=== PATIENT | female | born 1980 | race Caucasian/White ===

== ENCOUNTER 2022-09-09 12:49 | Inpatient (IN) | payer MEDICAID ==
[~2022-09-09] VITALS: Ht 167.6 cm; Wt 80.2 kg
[2022-09-09 15:40] LABS: BASOPHILS % (AUTO) 0.7 % (0-1); EOSINOPHILS % (AUTO) 0 % (0-6); HEMATOCRIT 35.4 % (35.0-45.0); HEMOGLOBIN 11.8 g/dl (12.0-16.0); LYMPHOCYTES # (AUTO) 0.7 X10'3 (1.1-4.8); LYMPHOCYTES % (AUTO) 12.7 % (21-51); MEAN CORPUSCULAR HEMOGLOBIN 30.2 PG (27.0-31.0); MEAN CORPUSCULAR HGB CONC 33.2 g/dL (33.0-36.5); MEAN CORPUSCULAR VOLUME 90.8 FL (78-98); MEAN PLATELET VOLUME 7.9 FL (7.4-10.4); MONOCYTES # (AUTO) 0.4 X10'3 (0-0.9); MONOCYTES % (AUTO) 7.1 % (2-12); NEUTROPHILS # (AUTO) 4.3 X10'3 (1.8-7.7); NEUTROPHILS % (AUTO) 79.5 % (42-75); PLATELET COUNT 126 X10'3 (140-440); RED CELL DISTRIBUTION WIDTH 16.3 % (11.5-14.5); WHITE BLOOD COUNT 5.4 X10'3 (4.5-11.0)
[2022-09-09 15:54] LABS: ALANINE AMINOTRANSFERASE 59 U/L (12-78); ALBUMIN 5.1 G/DL (3.4-5.0); ALKALINE PHOSPHATASE 125 IU/L (46-116); ANION GAP 18 (8-16); ASPARTATE AMINO TRANSFERASE 102 U/L (10-37); BILIRUBIN,TOTAL 1.1 MG/DL (0.1-1.0); BLOOD UREA NITROGEN 9 MG/DL (7-18); BUN/CREATININE RATIO 16.7 (10.0-20.0); CALCIUM 9.8 MG/DL (8.5-10.1); CHLORIDE 99 MMOL/L (99-107); CREATININE 0.54 MG/DL (0.40-0.90); GLUCOSE 110 MG/DL (70-104); POTASSIUM 3.5 MMOL/L (3.5-5.1); SODIUM 140 MMOL/L (135-145); TOTAL CARBON DIOXIDE 23.4 MMOL/L (24-32); eGFR > 90 ML/MIN
[2022-09-09 15:59] LABS: LIPASE 90 U/L (73-393)
[2022-09-09] MEDS ORDERED: ondansetron/PF 4mg/2ml inj IV ONE (18:25)
[2022-09-09] MEDS ORDERED: mag hydrox/Alum hydrox/simeth 30ml oral suspension PO ONE (18:25)
[2022-09-09] MEDS ORDERED: diazepam inj 5 MG/ML inj. IV ONE ×3 (18:25→21:55)
[2022-09-09] MEDS ORDERED: famotidine/PF 10 mg/ml inj IV ONE (18:25)
[2022-09-09] MEDS ORDERED: normal saline 1000ml 1,000 ML IV ONE (18:25)
[2022-09-09 18:49] LABS: ETHANOL < 0.010 GM/DL (0.0-0.010)
[2022-09-09 18:56] LABS: URINE HCG NEGATIVE (NEG)
[2022-09-09 18:57] LABS: CLARITY,URINE SLIGHTLY CLOUDY (Clear); GLUCOSE, URINE NEGATIVE (Neg); KETONES,URINE >=80 mg/dl (Neg); LEUKOCYTE ESTERASE ,URINE NEGATIVE (Neg); NITRITES, URINE POSITIVE (Neg); OCCULT BLOOD,URINE LARGE (Neg); PROTEIN,URINE >=300 mg/dl (Neg)
[2022-09-09 18:59] LABS: UA COLLECTION TYPE CLN CATCH MIDSTREAM
[2022-09-09 19:04] LABS: COLOR,URINE DARK YELLOW (Yellow); SQUAMOUS EPITHELIAL CELL,UR MANY /LPF (FEW)
[2022-09-09 19:05] LABS: WBC,URINE TNTC /HPF (0-4)
[2022-09-09 19:07] LABS: MUCUS STRANDS MANY /LPF (Neg)
[2022-09-09 19:08] LABS: RBC,URINE 20-50 /HPF (0-2); TRANSITIONAL EPI CELLS,URINE MANY /HPF; YEAST FEW /HPF (NEGATIVE)
[2022-09-09 19:09] LABS: BACTERIA,URINE 3+ /HPF (Neg)
[2022-09-09] MEDS ORDERED: CefTRIAXone/D5W-Rocephin 1gm 50 ML IV ONE (19:10)
[2022-09-09 19:16] LABS: URINE AMPHETAMINE SCREEN NEGATIVE (Neg); URINE BARBITUATE SCREEN NEGATIVE (Neg); URINE BENZODIAZEPINES SCREEN NEGATIVE (Neg); URINE CANNABINOID SCREEN POSITIVE (Neg); URINE COCAINE SCREEN NEGATIVE (Neg); URINE METHADONE SCREEN NEGATIVE (Neg); URINE OPIATE SCREEN NEGATIVE (Neg); URINE PHENCYCLIDINE SCREEN NEGATIVE (Neg)
[2022-09-09] MEDS ORDERED: iohexol 300mg/ml 100ml inj. ONE (20:24)
[2022-09-09] MEDS ORDERED: potassium Cl 20 mEq SR tablet PO PRN (22:55)
[2022-09-09] MEDS ORDERED: diphenhydrAMINE 50 mg/ml inj IV PRN (22:55)
[2022-09-09] MEDS ORDERED: potassium Cl 40MEQ/1/2NS 520ml 520 ML IV PRN (22:55)
[2022-09-09] MEDS ORDERED: dextrose 50%-water 50ml dispensing syringe IV PRN (22:55)
[2022-09-09] MEDS ORDERED: magnesium 4gm in 100ml NS 100 ML IV PRN (22:55)
[2022-09-09] MEDS ORDERED: magnesium Cl slow-release 64mg tablet PO PRN (22:55)
[2022-09-09] MEDS ORDERED: thiamine 100mg tablet PO SCH (22:55)
[2022-09-09] MEDS ORDERED: folic acid 1mg tablet PO SCH (22:55)
[2022-09-09] MEDS ORDERED: haloperidol lactate 5mg/ml inj IM PRN (22:55)
[2022-09-09] MEDS ORDERED: LORazepam 2 mg/ml vial IV PRN ×2 (22:55)
[2022-09-09] MEDS: normal saline 1000ml 1,000 ML IV SCH (23:40)
[2022-09-09] MEDS: thiamine 100mg/ml 2ml inj. IV SCH (23:41)
[2022-09-09] MEDS: folic acid 1mg/0.2ml inj IV SCH (23:50)
[2022-09-10] MEDS ORDERED: BUDE10.26 PO (00:31)
[2022-09-10] MEDS ORDERED: POTA-82 PO (00:31)
[2022-09-10] MEDS ORDERED: LEVE250T PO (00:32)
[2022-09-10] MEDS ORDERED: NICO-687 TOP (00:32)
[2022-09-10] MEDS ORDERED: FOLI1TAB27 PO (00:32)
[2022-09-10] MEDS ORDERED: CITA10TA15 PO (00:32)
[2022-09-10] MEDS ORDERED: THIA100T70 PO (00:32)
[2022-09-10] MEDS ORDERED: PANT40TA54 PO (00:32)
[2022-09-10] MEDS ORDERED: CHOL200074 PO (00:32)
--- NOTE | 2022-09-10 01:21 | NUR ---
REPORT CALLED TO FLOOR NURSE PT TO FLOOR WITH TECH ROOM 4020
--- NOTE | 2022-09-10 02:00 | NUR ---
Received pt from ER very lethargic unable to move from stretcher to bed without assistance. Able to answer questions though drowsy. Pt. Has a peripheral IV NS infusing at 100 ml/hr. Pt. advised to use call light for BR or when ever necessary. Pt. to remain on bed rest and NPO until awake. 0600 more awake this am follows commands able to move about now. Pt. will have protonix started at 8 am per pharmacy.
[2022-09-10 02:07] VITALS: BP 138/82
[2022-09-10] MEDS ORDERED: pantoprazole 40mg IV 80 MG in normal saline 100ml IV soln 100 ML IV ONE (05:56)
[2022-09-10 06:10] LABS: BASOPHILS % (AUTO) 0.8 % (0-1); EOSINOPHILS % (AUTO) 0.5 % (0-6); HEMATOCRIT 32.3 % (35.0-45.0); HEMOGLOBIN 10.7 g/dl (12.0-16.0); LYMPHOCYTES % (AUTO) 28.6 % (21-51); MEAN CORPUSCULAR HEMOGLOBIN 30.4 PG (27.0-31.0); MEAN CORPUSCULAR HGB CONC 33.3 g/dL (33.0-36.5); MEAN CORPUSCULAR VOLUME 91.4 FL (78-98); MEAN PLATELET VOLUME 8.2 FL (7.4-10.4); MONOCYTES # (AUTO) 0.5 X10'3 (0-0.9); MONOCYTES % (AUTO) 13.1 % (2-12); PLATELET COUNT 92 X10'3 (140-440); RED BLOOD COUNT 3.53 X10'6 (4.20-5.60); RED CELL DISTRIBUTION WIDTH 16.1 % (11.5-14.5); WHITE BLOOD COUNT 3.5 X10'3 (4.5-11.0)
[2022-09-10 06:24] LABS: ALBUMIN 4.1 G/DL (3.4-5.0); ANION GAP 12 (8-16); BLOOD UREA NITROGEN 8 MG/DL (7-18); BUN/CREATININE RATIO 16.7 (10.0-20.0); CALCIUM 9.1 MG/DL (8.5-10.1); CHLORIDE 100 MMOL/L (99-107); CREATININE 0.48 MG/DL (0.40-0.90); GLUCOSE 84 MG/DL (70-104); MAGNESIUM 1.6 MG/DL (1.5-2.4); SODIUM 140 MMOL/L (135-145); eGFR > 90 ML/MIN
[2022-09-10 06:32] LABS: POTASSIUM 2.6 MMOL/L (3.5-5.1)
--- NOTE | 2022-09-10 07:10 | NUR ---
Paged Dr. Green patient's potassium 2.6. Will replace per protocol
[2022-09-10 07:33] VITALS: BP 143/87
[2022-09-10] MEDS: folic acid 1mg/0.2ml inj IV SCH (07:46)
[2022-09-10] MEDS: thiamine 100mg/ml 2ml inj. IV SCH ×2 (07:46→12:59)
[2022-09-10] MEDS: potassium Cl 20 mEq SR tablet PO PRN ×2 (07:46→11:53)
[2022-09-10] MEDS ORDERED: K and/or MAG REPLACEMENT MC SCH (08:00)
[2022-09-10] MEDS ORDERED: nicotine 21mg patch - 24 hr TD SCH (08:25)
[2022-09-10] MEDS ORDERED: levetiracetam 250mg tablet PO SCH (09:23)
--- NOTE | 2022-09-10 10:42 | NUR ---
Per Dr. Green, advance patient to regular diet. Order entered.
[2022-09-10 11:20] VITALS: BP 134/84
[2022-09-10] MEDS: normal saline 1000ml 1,000 ML IV SCH (11:54)
[2022-09-10] MEDS ORDERED: albuterol 2.5 MG/3 ML nebule NEB SCH (14:00)
[2022-09-10 14:59] VITALS: BP 133/84
[2022-09-10] MEDS ORDERED: CIPR250T4 PO (15:43)
[2022-09-10] MEDS ORDERED: LACT1CAP26 PO (15:43)
[2022-09-10] MEDS ORDERED: ciprofloxacin 250mg tablet PO ONE ×2 (15:45)
--- NOTE | 2022-09-10 15:56 | NUR ---
Per Dr. Green, order ciprofloxacin 500 mg PO once now before patient discharges. Order entered and medication given. See MAR. RN provided education on discharge instructions to patient. All questions/concerns addressed. IV removed with tip intact. Cardiac tele monitor removed and returned to site monitor. Patient dressed in personal clothing, all personal belongings present and accounted for. Patient left unit in stable condition @15:50.
[2022-09-10] MEDS ORDERED: budesonide 0.5mg/2ml UD nebule IH SCH (20:00)
[2022-09-11] MEDS ORDERED: pantoprazole 40MG/NS 100ML BAG 100 ML IV SCH (08:00)
[2022-09-11] MEDS ORDERED: cholecalciferol (vitamin D3) 1,000 unit (25mcg) tablet PO SCH (08:00)
[2022-09-11] MEDS ORDERED: CITALOpram 10mg tablet PO SCH (08:00)
[2022-09-13] MEDS ORDERED: folic acid 1mg tablet PO SCH (08:00)
[2022-09-14] MEDS ORDERED: thiamine 100mg tablet PO SCH (08:00)
== END 2022-09-10 16:08 | disposition home or self-care (01) | DRG 775 ==
LOC: ER 12:49 → ED HOLD 23:01 → ORTHO 4S 09-10 01:45
PROVIDERS: ADMIT Internal Medicine; ATTEND Family Medicine
PROC: BW211ZZ Computerized Tomography (CT Scan) of Abdomen and Pelvis using Low Osmolar Contrast (ICD-10-PCS; principal; 2022-09-09)
DX: F10.231 Alcohol dependence with withdrawal delirium (principal); F17.210 Nicotine dependence, cigarettes, uncomplicated; N39.0 Urinary tract infection, site not specified; K21.9 Gastro-esophageal reflux disease without esophagitis; Z86.73 Personal history of transient ischemic attack (TIA), and cerebral infarction without residual deficits; Z88.0 Allergy status to penicillin; Z71.41 Alcohol abuse counseling and surveillance of alcoholic
CPT/HCPCS: 36415; 71045; 74177; 80048; 80053; 80305; 80320; 81001; 81025; 83605; 83690; 83735; 84132; 84484; 85025; 93005; 96361; 96365; 96375; 96376; 97161; 99285; G0378; J0696; J2060; J2405; J3360; J3411; J3490; J7030; Q9967